=== PATIENT | male | born 1975 | race Caucasian/White ===

== ENCOUNTER 2019-11-04 11:37 | Outpatient (CLI) | payer OTHER | END 2019-11-04 23:59 | disposition short-term general hospital (02) | LOC: EMS 11:37 | PROVIDERS: ATTEND Surgery | DX: R07.9 Chest pain, unspecified (principal); R00.0 Tachycardia, unspecified; K30 Functional dyspepsia | CPT/HCPCS: A0425; A0427 ==

== ENCOUNTER 2020-12-22 08:00 | Outpatient (CLI) | payer OTHER | END 2020-12-22 23:59 | disposition home or self-care (01) | LOC: LAB.R 08:00 | PROVIDERS: ATTEND Nurse Practitioner | DX: R31.9 Hematuria, unspecified (principal) | CPT/HCPCS: 87086 ==

== ENCOUNTER 2022-07-02 11:35 | Outpatient (CLI) | payer OTHER | END 2022-07-02 11:36 | disposition short-term general hospital (02) | LOC: EMS 11:35 | DX: I48.91 Unspecified atrial fibrillation (principal); R42 Dizziness and giddiness | CPT/HCPCS: A0425; A0427 ==

== ENCOUNTER 2022-07-07 09:03 | Outpatient (CLI) | payer OTHER ==
[2022-07-07 19:29] LABS: BASOPHILS # (AUTO) 0.1 10^3/uL (0.0-0.1); BASOPHILS % (AUTO) 0.8 %; EOSINOPHILS # (AUTO) 0.2 10^3/uL (0.0-0.7); EOSINOPHILS % (AUTO) 1.9 %; HCT - HEMATOCRIT 51.6 % (42.0-52.0); HGB - HEMOGLOBIN 16.4 g/dL (14.0-18.0); LYMPHOCYTES # (AUTO) 2.5 10^3/uL (1.5-3.5); LYMPHOCYTES % (AUTO) 29.6 %; MEAN CORPUSCULAR HGB CONC 31.8 g/dL (32.0-36.0); MEAN CORPUSCULAR VOLUME 91.3 fL (80.0-94.0); MEAN PLATELET VOLUME 11.7 fL (7.4-11.4); MONOCYTES # (AUTO) 0.6 10^3/uL (0.0-1.0); MONOCYTES % (AUTO) 7.6 %; NEUTROPHILS % (AUTO) 59.7 %; PLT - PLATELET COUNT 290 10^3/uL (130-450); RED BLOOD COUNT 5.65 10^6/uL (4.70-6.10); RED CELL DISTRIBUTION WIDTH 13.6 % (12.0-15.0); WHITE BLOOD COUNT 8.4 x10^3/uL (4.8-10.8)
[2022-07-07 19:48] LABS: ALBUMIN 4.2 g/dL (3.2-5.5); ALBUMIN/GLOBULIN RATIO 1.2 (1.0-2.2); ALKALINE PHOSPHATASE 64 IU/L (42-121); ALT ALANINE AMINOTRANSFERASE 22 IU/L (10-60); AST ASPARTATE AMINOTRANSFERASE 16 IU/L (10-42); BILIRUBIN,TOTAL 2.8 mg/dL (0.2-1.0); BUN - BLOOD UREA NITROGEN 17 mg/dL (6-20); CALCIUM 8.7 mg/dL (8.5-10.3); CARBON DIOXIDE - CO2 25 mmol/L (21-32); CHLORIDE 102 mmol/L (101-111); CHOL/HDL RATIO 4.3 (<5.0); CHOLESTEROL 194 mg/dL; CREATININE 1.1 mg/dL (0.6-1.2); GFR - MDRD 71 (>89); GLUCOSE 122 mg/dL (70-100); HDL CHOLESTEROL 45 mg/dL; LDL CHOLESTEROL,CALCULATED 122 mg/dL; LDL/HDL RATIO 2.7 (<3.6); POTASSIUM 4.7 mmol/L (3.5-5.0); SODIUM 137 mmol/L (135-145); TOTAL PROTEIN 7.8 g/dL (6.7-8.2); TRIGLYCERIDES 135 mg/dL; VLDL CHOLESTEROL 27 mg/dL
[2022-07-07 19:53] LABS: THYROID STIMULATING HORMONE 3.95 uIU/mL (0.34-5.60)
== END 2022-07-07 09:04 | disposition home or self-care (01) ==
LOC: LAB.N 09:03
PROVIDERS: ATTEND Nurse Practitioner
DX: R00.2 Palpitations (principal); Z13.220 Encounter for screening for lipoid disorders
CPT/HCPCS: 36415; 80053; 80061; 83721; 84443; 85025

== ENCOUNTER 2022-07-23 07:18 | Outpatient (CLI) | payer OTHER ==
[2022-07-23 13:22] LABS: ALBUMIN 3.8 g/dL (3.2-5.5); BILIRUBIN,DIRECT 0.1 mg/dL (0.1-0.5); BILIRUBIN,TOTAL 1.3 mg/dL (0.2-1.0); CREATININE 1.3 mg/dL (0.6-1.2); POTASSIUM 4.3 mmol/L (3.5-5.0); TOTAL PROTEIN 7.7 g/dL (6.7-8.2)
== END 2022-07-23 07:19 | disposition home or self-care (01) ==
LOC: LAB.N 07:18
PROVIDERS: ATTEND Nurse Practitioner
DX: E80.6 Other disorders of bilirubin metabolism (principal)
CPT/HCPCS: 36415; 80053; 82248; 82977; 83010

== ENCOUNTER 2022-07-27 06:47 | Outpatient (CLI) | payer OTHER ==
--- NOTE | 2022-07-27 10:54 | Ultrasound Report ---
PROCEDURE: Abdomen Complete INDICATIONS: HYPERBILIRUBINEMIA TECHNIQUE: Real-time scanning was performed of the abdominal and retroperitoneal organs, with image documentatio n. COMPARISON: None. FINDINGS: Liver: Normal echogenicity. In the left hepatic lobe, there is a hyperechoic, avascular structure cary suring 1.4 x 2.9 x 1.4 cm. Hepatopedal blood flow. Gallbladder: Unremarkable. Biliary ducts: Intrahepatic bile ducts are non-dilated. Extrahepatic bile duct caliber measures 4 m m. Normal is 6-7 mm or less in diameter, or 10 mm or less post-cholecystectomy. Pancreas: Visualized portions of the pancreas are sonographically normal. Spleen: Spleen is normal in size and homogeneous in echotexture. Kidneys: Kidneys are normal in size and echotexture. Right kidney measures 10.2 cm long; left kidne y measures 11.5 cm long. No hydronephrosis or nephrolithiasis. No solid masses. Aorta: Visualized aorta is normal in caliber at less than 3 cm. Iliacs: Proximal common iliac arteries are normal in caliber at less than 2.5 cm. IVC: Intrahepatic inferior vena cava is patent. Miscellaneous: No free abdominal fluid. IMPRESSION: 1. No evidence of biliary obstruction. 2. Echogenic lesion within the left hepatic lobe measuring up to 2.5 cm. In the absence of malignancy or liver disease, findings probably represent a hemangioma. In the presence of these risk factors, M RI characterization with contrast to be considered. Reviewed by: Antonio Bernstein on 07/27/2022 10:53 AM [facility] Approved by: Antonio Bernstein on 07/27/2022 10:53 AM [facility] Station ID: [id number]
== END 2022-07-27 06:48 | disposition home or self-care (01) ==
LOC: DI 06:47
PROVIDERS: ATTEND Family Medicine
DX: K76.9 Liver disease, unspecified (principal)

== ENCOUNTER 2022-08-06 08:00 | Outpatient (CLI) | payer OTHER ==
[2022-08-06 18:44] LABS: FECAL OCCULT BLOOD (FIT) NEGATIVE (NEGATIVE)
== END 2022-08-06 23:59 | disposition home or self-care (01) ==
LOC: LAB.N 08:00
PROVIDERS: ATTEND Nurse Practitioner
DX: Z12.11 Encounter for screening for malignant neoplasm of colon (principal)
CPT/HCPCS: 82274

== ENCOUNTER 2022-08-08 14:18 | Outpatient (CLI) | payer OTHER | END 2022-08-08 14:19 | disposition home or self-care (01) | LOC: MAC.MOP 14:18 | PROVIDERS: ATTEND Nurse Practitioner | DX: R00.2 Palpitations (principal) | CPT/HCPCS: 93246 ==

== ENCOUNTER 2022-09-03 07:57 | Outpatient (CLI) | payer OTHER ==
[~2022-09-03 07:57] MED LIST: GADOBUTROL 10 MMOL/10 ML VIAL ONE
--- NOTE | 2022-09-03 11:37 | MRI Report ---
PROCEDURE: ABDOMEN W/WO INDICATIONS: LIVER MASS CONTRAST: gadavist 9.3ml TECHNIQUE: Coronal ultra fast SE, axial 2D spoiled GE in- and [id number]; axial breath-hold T2 fast SE. Dynam ic axial ultra fast GE during the administration of contrast; post-contrast coronal ultra fast GE or 2D spoiled GE with fat saturation from the hepatic dome to the iliac crests. Optional diffusion weig hted imaging and ADC may be performed. COMPARISON: Ultrasound 07/27/2022 FINDINGS: Image quality: Sub-optimal evaluation due to motion artifact. Lung bases: No basal pleural effusions. Heart size is normal. Solid organs: The anterior margin of the left hepatic lobe demonstrates mild focal irregularity, with interposed peritoneal fat (series 4, image 13). No definite solid liver mass is identified. Gallblad tosha is unremarkable. No complex renal cystic lesions which require follow-up. Nodes and vessels: No retroperitoneal or mesenteric adenopathy by size criteria. Aorta and inferior vena cava are normal in size. Bowel and peritoneum: Unenhanced bowel loops are normal in caliber. No free fluid. Bones and soft tissues: No ventral hernias. Bone marrow is normal in overall signal. IMPRESSION: No definite solid liver mass. In the expected position of the ultrasound finding, there is interposed fat within the liver margin, which could explain the ultrasound findings (although this could repres ent artifact of volume averaging). Recommend follow-up with ultrasound in 6-12 months to ensure stabi lity, as a certain correlate was not identified. Reviewed by: Antonio Bernstein on 09/03/2022 11:36 AM PDT Approved by: Antonio Bernstein on 09/03/2022 11:36 AM PDT Station ID: [id number]
[2022-09-03] MEDS ORDERED: GADOBUTROL 10 MMOL/10 ML VIAL IVP ONE (16:46)
== END 2022-09-03 07:58 | disposition home or self-care (01) ==
LOC: DI 07:57
PROVIDERS: ATTEND Family Medicine
DX: K76.89 Other specified diseases of liver (principal)
CPT/HCPCS: 74183; A9585

== ENCOUNTER 2022-09-03 10:30 | Outpatient (CLI) | payer OTHER | END 2022-09-03 10:31 | disposition home or self-care (01) | LOC: MAC.INF 10:30 | PROVIDERS: ATTEND Nurse Practitioner | DX: R00.2 Palpitations (principal); I47.1 Supraventricular tachycardia; I49.1 Atrial premature depolarization; I49.3 Ventricular premature depolarization | CPT/HCPCS: 93248 ==